=== PATIENT | female | born 1995 | race Caucasian/White ===

== ENCOUNTER 2022-05-25 12:40 | Emergency (ER) | payer OTHER ==
[~2022-05-25] VITALS: Ht 165.1 cm; Wt 63.5 kg
[2022-05-25 15:30] VITALS: BP 115/59
== END 2022-05-25 15:40 | disposition home or self-care (01) ==
LOC: ER 12:40
DX: S92.354A Nondisplaced fracture of fifth metatarsal bone, right foot, initial encounter for closed fracture (principal); X50.1XXA Overexertion from prolonged static or awkward postures, initial encounter; Y93.89 Activity, other specified; Y92.89 Other specified places as the place of occurrence of the external cause; Y99.8 Other external cause status
CPT/HCPCS: 29515; 73610; 73630